=== PATIENT | male | born 1990 | race American Indian/Alaskan Native ===

== ENCOUNTER 2020-04-16 10:12 | Emergency (ER) | payer SELFPAY ==
--- NOTE | 2020-04-16 10:16 | Event Note ---
ED Screening Note Date of service: 04/16/20 Time: 10:13 ED Screening Note: The patient was evaluated in the emergency department for symptoms described in the history of present illness. He/she was evaluated in the context of the global COVID-19 pandemic, which necessitated consideration that the patient might be at risk for infection with the virus that causes COVID-19. Institutional protocols and algorithms that pertain to the evaluation of patients at risk for COVID-19 are in a state of rapid change based on information released by regulatory bodies including the CDC and federal and state organizations. These policies and algorithms were followed during the patient's care in the emergency department. Please note that these policies, procedures and recommendations changed on a rapid basis. 29-year-old -[place] male presents to the emergency room from a referral from urgent care stating that he has a fractured rib 12 rib on the left side. I would like for him to be further evaluated. Patient appears to be in no acute distress breathing is nonlabored. This initial assessment/diagnostic orders/clinical plan/treatment(s) is/are subject to change based on patients health status, clinical progression and re- assessment by fellow clinical providers in the ED. Further treatment and workup at subsequent clinical providers discretion. Patient/guardian urged not to elope from the ED as their condition may be serious if not clinically assessed and managed. Initial orders include: X-ray to be ordered
[2020-04-16 10:18] VITALS: BP 140/98
--- NOTE | 2020-04-16 10:55 | XRay Report ---
CHEST PA AND LATERAL VIEWS INDICATION: sob,cough and rales. COMPARISON: None FINDINGS: Support devices: None Heart: Normal Lungs/Pleura: No acute pulmonary or pleural findings. IMPRESSION: 1. No significant abnormality. Signer Name: Chetan Wan MD Signed: 04/16/2020 10:51 AM Workstation Name: [id number]
[2020-04-16] MEDS ORDERED: HYDROcodone/ACETAMINOPHEN 10-325MG TAB PO ONE (12:26)
--- NOTE | 2020-04-16 12:50 | Emergency Department Report ---
ED General Adult HPI - General Chief complaint: Chest Pain Stated complaint: X RAY RIB INJURY Time Seen by Provider: 04/16/20 12:22 Source: patient Mode of arrival: Ambulatory Limitations: No Limitations - History of Present Illness Initial comments: This is a 29-year-old male nontoxic, well nourished in appearance, no acute signs of distress presents to the ED with c/o of left lateral rib pain x 1 week. Patient stated that he was playing and got injured to left lateral rib area.. Patient describes pain as aching intermittently. Patient stated that he went to urgent care and was diagnosed with rib fracture and was sent to the ER for further evaluation and treatment. Patient denies any upper respiratory symptoms. Patient denies any shortness of breath, hemoptysis, fever, chills, nausea, vomiting, headache, stiff neck, numbness, tingling, abdominal pain. Patient denies pleuritic chest pain. Patient denies any recent travels or long car rides. Patient denies any recent surgeries or any sick contacts. Patient denies any drug allergies. -: week(s) Location: chest Radiation: non-radiation Severity scale (0 -10): 8 Quality: aching Consistency: constant Improves with: rest Worsens with: other (Palpation) Associated Symptoms: denies other symptoms. denies: confusion, chest pain, cough, diaphoresis, fever/chills, headaches, loss of appetite, malaise, nausea/vomiting, rash, seizure, shortness of breath, syncope, weakness Treatments Prior to Arrival: none - Related Data Previous Rx's Medication Instructions Recorded Last Taken Type Acetaminophen/Codeine [Tylenol 1 tab PO Q6H PRN #12 tab 04/16/20 Unknown Rx /Codeine # 3 tab] Allergies Allergy/AdvReac Type Severity Reaction Status Date / Time No Known Allergies Allergy Unverified 04/16/20 10:13 ED Review of Systems ROS: Stated complaint: X RAY RIB INJURY Other details as noted in HPI Comment: All other systems reviewed and negative Constitutional: denies: chills, fever Eyes: denies: eye pain, eye discharge, vision change ENT: denies: ear pain, throat pain Respiratory: denies: cough, shortness of breath, wheezing Cardiovascular: denies: chest pain, palpitations Endocrine: no symptoms reported Gastrointestinal: denies: abdominal pain, nausea, diarrhea Genitourinary: denies: urgency, dysuria Musculoskeletal: denies: back pain, joint swelling, arthralgia Skin: denies: rash, lesions Neurological: denies: headache, weakness, paresthesias Psychiatric: denies: anxiety, depression Hematological/Lymphatic: denies: easy bleeding, easy bruising ED Past Medical Hx - Past Medical History Previous Medical History?: No - Surgical History Past Surgical History?: No - Social History Smoking Status: Never Smoker Substance Use Type: Alcohol - Medications Home Medications: Home Medications Medication Instructions Recorded Confirmed Last Taken Type Acetaminophen/Codeine [Tylenol 1 tab PO Q6H PRN #12 tab 04/16/20 Unknown Rx /Codeine # 3 tab] ED Physical Exam - General Limitations: No Limitations General appearance: alert, in no apparent distress - Head Head exam: Present: atraumatic, normocephalic - Eye Eye exam: Present: normal appearance - Neck Neck exam: Present: normal inspection, full ROM. Absent: tenderness, meningismus, lymphadenopathy - Respiratory Respiratory exam: Present: normal lung sounds bilaterally, chest wall tenderness (Left lateral rib). Absent: respiratory distress, wheezes, rales, rhonchi, stridor, accessory muscle use, decreased breath sounds, prolonged expiratory - Cardiovascular Cardiovascular Exam: Present: regular rate, normal rhythm, normal heart sounds. Absent: bradycardia, tachycardia, irregular rhythm, systolic murmur, diastolic murmur, rubs, gallop - GI/Abdominal GI/Abdominal exam: Present: soft, normal bowel sounds. Absent: distended, tenderness, guarding, rebound, rigid, diminished bowel sounds - Extremities Exam Extremities exam: Present: normal inspection, full ROM - Back Exam Back exam: Present: normal inspection, full ROM. Absent: tenderness, CVA t enderness (R), CVA tenderness (L), muscle spasm, paraspinal tenderness, vertebral tenderness, rash noted - Neurological Exam Neurological exam: Present: alert, oriented X3, normal gait - Psychiatric Psychiatric exam: Present: normal affect, normal mood - Skin Skin exam: Present: warm, dry, intact, normal color. Absent: rash ED Course Vital Signs 04/16/20 04/16/20 04/16/20 10:15 13:05 14:05 Temperature 98 F Pulse Rate 89 Respiratory 16 16 Rate Blood Pressure 140/98 O2 Sat by Pulse Oximetry 04/16/20 14:46 Temperature Pulse Rate Respiratory Rate Blood Pressure O2 Sat by Pulse 100 Oximetry - Reevaluation(s) Reevaluation #1: 04/16/20 12:50 Patient is speaking in full sentences with no signs of distress noted. - Consultations Consultation #1: 04/16/20 14:14 Patient has been consulted with Vanita Ahumada about patient history, physical exam, and CT results and patient can be discharged with follow-up. ED Medical Decision Making - Radiology Data Referring Physician: SULEMA RODRIGUEZ Patient Name: OZZY SMITH Date of : 1990 Sex: Male Report Date: 2020-04-16 Report Status: [place] [address] Cat Scan Report Signed Patient: OZZY SMITH MR#: Harley [id number] : 1990 Acct:[id number] Age/Sex: 29 / M ADM Date: 04/16/20 Loc: ED Attend ing Dr: Ordering Physician: SULEMA RODRIGUEZ NP Date of Service: 04/16/20 Procedure(s): CT chest wo con Accession Number(s): [id number] cc: SULEMA RODRIGUEZ NP CT chest wo con HISTORY: Left-sided rib pain COMPARISON: None TECHNIQUE: Chest CT exam. All CT scans at this location are performed using CT dose reduction for ALARA by means of automated exposure control. FINDINGS: CT CHEST: Lungs: Bibasilar 4 subsegmental atelectasis. Trachea and Bronchi: No significant abnormality. Mediastinum/Lymph nodes: No lymphadenopathy. Heart: No significant abnormality. Vasculature: No significant abnormality. Osseous Structures: Mildly displaced left anterolateral eighth rib fracture. Please note that the 9th through 12th1 ribs are not fully visualized Additional Findings: None IMPRESSION: 1. Mildly displaced left anterolateral eighth rib fracture with bibasilar atelectasis. Signer Name: Tanner Grayson MD Signed: 04/16/2020 1:36 PM Workstation Name: [id number] Transcribed By: CS Dictated By: Tanner Grayson MD Electronically Authenticated By: Tanner Grayson MD Signed Date/Time: 04/16/20 133 DD/ 1334 TD/TT: - Medical Decision Making 29-year-old male that presents with rib fracture. Patient is stable and was examined by me. Patient was consulted with Dr. Verma and patient can be discharged with appropriate follow-up. Patient was instructed of the CT results with no questions noted by the patient. Patient receiving an incentive spirometer and educated by RN how to use it. Vital signs are stable at discharge. Patient will be discharged with Tylenol with codeine and was instructed not to operate any machinery while taking medication as it causes drowsiness. Patient stated symptoms of pain is controlled in the ER and stated family member will drive patient home after discharge. Patient was instructed to follow-up with a primary care doctor in 3-5 days or if symptoms worsen and continue return to emergency room as soon as possible. At time of discharge, the patient does not seem toxic or ill in appearance. No acute signs of distress noted. Patient agrees to discharge treatment plan of care. No further questions noted by the patient. Critical care attestation.: If time is entered above; I have spent that time in minutes in the direct care of this critically ill patient, excluding procedure time. ED Disposition Clinical Impression: Left rib fracture Qualifiers: Encounter type: initial encounter Rib fracture type: single rib Fracture type: closed Qualified Code(s): S22.32XA - Fracture of one rib, left side, initial encounter for closed fracture Disposition: DC-01 TO HOME OR SELFCARE Is pt being admited?: No Does the pt Need Aspirin: No Condition: Stable Instructions: Acetaminophen/Codeine (By mouth), How to Use an Incentive Spirometer (ED), Rib Fracture (ED) Additional Instructions: Follow-up with a primary care doctor in 3-5 days or if symptoms worsen and continue return to emergency room as soon as possible. Do not operate any machinery while taking Tylenol with codeine as this may cause drowsiness. Prescriptions: Acetaminophen/Codeine [Tylenol /Codeine # 3 tab] 1 tab PO Q6H PRN #12 tab PRN Reason: Pain , Severe (7-10) Referrals: PRIMARY CAREMD [Primary Care Provider] - 3-5 Days SOPHIA TORRES MD [Staff Physician] - 3-5 Days Forms: Work/School Release Form(ED)
--- NOTE | 2020-04-16 13:41 | Cat Scan Report ---
CT chest wo con HISTORY: Left-sided rib pain COMPARISON: None TECHNIQUE: Chest CT exam. All CT scans at this location are performed using CT dose reduction for ALA RA by means of automated exposure control. FINDINGS: CT CHEST: Lungs: Bibasilar 4 subsegmental atelectasis. Trachea and Bronchi: No significant abnormality. Mediastinum/Lymph nodes: No lymphadenopathy. Heart: No significant abnormality. Vasculature: No significant abnormality. Osseous Structures: Mildly displaced left anterolateral eighth rib fracture. Please note that the 9th through 12th1 ribs are not fully visualized Additional Findings: None IMPRESSION: 1. Mildly displaced left anterolateral eighth rib fracture with bibasilar atelectasis. Signer Name: Tanner Grayson MD Signed: 04/16/2020 1:36 PM Workstation Name: [id number]
== END 2020-04-16 14:48 | disposition home or self-care (01) ==
LOC: ED 10:12
DX: S22.32XA Fracture of one rib, left side, initial encounter for closed fracture (principal); Z79.899 Other long term (current) drug therapy; X58.XXXA Exposure to other specified factors, initial encounter; Y93.89 Activity, other specified; Y92.89 Other specified places as the place of occurrence of the external cause; Y99.8 Other external cause status
CPT/HCPCS: 71046; 71250